=== PATIENT | female | born 2000 | race Caucasian/White ===

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

== ENCOUNTER → 2019-03-05 | Outpatient (REF) | payer OTHER, MEDICAID ==
[2019-03-05 18:19] LABS: HCG, SERUM QUALITATIVE NEGATIVE (NEGATIVE)
== END ==
LOC: M LAB REF 17:21
PROVIDERS: ATTEND Family Medicine
DX: N92.5 Other specified irregular menstruation (principal)